=== PATIENT | male | born 1970 | race Caucasian/White ===

== ENCOUNTER 2018-11-29 17:35 | Emergency (ER) | payer MEDICAID ==
[~2018-11-29] VITALS: Ht 175.3 cm; Wt 109.0 kg
[~2018-11-29 17:35] MED LIST: GABA400C14 PO; IBUP-1544 PO; LANT3I SC; LEVEM SC; LEVEM SC*; LISI-471 PO; METF100010 PO
[2018-11-29 17:40] VITALS: Ht 175.3 cm; Wt 109.0 kg
[2018-11-29 20:25] VITALS: BP 117/65; PULSE 90; RESP 18
== END 2018-11-29 20:38 | disposition home or self-care (01) ==
LOC: E/R 17:35
DX: N28.9 Disorder of kidney and ureter, unspecified (principal); F17.210 Nicotine dependence, cigarettes, uncomplicated; I10 Essential (primary) hypertension; Z79.4 Long term (current) use of insulin
CPT/HCPCS: 36415; 71045; 74176; 80053; 81001; 83690; 84484; 85025; 85610; 85730; 93005; 96374; 96375; J1170; J2405; J7030; Z7502